=== PATIENT | male | born 1960 | race African-American/Black ===

== ENCOUNTER 2016-10-16 16:48 | Emergency (ER) | payer MEDICARE, OTHER ==
[2016-10-16] MEDS ORDERED: CLONIDINE HCL 0.1 MG TABLET ONE (17:06)
[2016-10-16] MEDS ORDERED: PREDNISONE 20 MG TABLET ONE (17:06)
[2016-10-16] MEDS ORDERED: DIPHENHYDRAMINE HCL 25 MG CAPSULE ONE (17:06)
== END 2016-10-16 17:26 | disposition home or self-care (01) ==
LOC: ED 16:48
DX: T78.3XXA Angioneurotic edema, initial encounter (principal); M54.9 Dorsalgia, unspecified; G89.29 Other chronic pain; I10 Essential (primary) hypertension; F11.23 Opioid dependence with withdrawal; J45.909 Unspecified asthma, uncomplicated; F17.210 Nicotine dependence, cigarettes, uncomplicated; T50.905A Adverse effect of unspecified drugs, medicaments and biological substances, initial encounter; T40.2X5A Adverse effect of other opioids, initial encounter; Y92.9 Unspecified place or not applicable
CPT/HCPCS: 99283 ×2; A9270 ×2; J7512